=== PATIENT | male | born 1955 | race Caucasian/White ===

== ENCOUNTER 2023-07-14 07:34 | Emergency (ER) | payer MEDICARE, SELFPAY ==
[2023-07-14 07:36] VITALS: BP 177/101
--- NOTE | 2023-07-14 08:27 | ED.GENMED ---
History of Present Illness
General
Chief Complaint: Breathing Problem
Source: patient
Exam Limitations: none
Time Seen by Provider: 07/14/23 08:09
Travel History
Have you had any contact with someone who has COVID-19?: No
Do you have any symptoms of coronavirus? Fever > 100 degrees, chills, cough, shortness of breath, sore throat, loss of taste or smell, muscle aches, or headache?: No
History of Present Illness
History of Present Illness:
See MDM
Past History
Past History
ED Past Medical History: None
ED Past Surgical History: None
Social History
Tobacco: Smoker
Living: with family
Phy Exam
Physical Exam
Physical Exam:
See MDM
Scores
Heart Failure Risk
Heart Failure Risk Score: Not Applicable
Course
Orders/Labs/Results
Orders:
Orders
07/14/23 08:21
Ipratropium/Albuterol Sulfate [Duoneb] 3 ml INH R NOW STA
07/14/23 08:24
Electrocardiogram (*1) Urgent
Reason for Study: Shortness of Breath
EKG- Treatment ONCE
07/14/23 08:46
COVID-19 Antigen Urgent
Source: Nasal Swab
Complete Blood Count/With Diff Urgent
Comprehensive Metabolic Panel Urgent
Magnesium Urgent
NT-proBNP Urgent
TSH Reflex To Free T4 Urgent
Troponin I Urgent
07/14/23 09:39
Albuterol [ProAIR HFA INHALER] 1 puff INH R NOW STA
Dexamethasone Sod Phosphate [Decadron] 10 mg IV NOW STA
07/14/23 10:21
CR Chest - 2 Views Urgent
Comment:
Reason For Exam: SOB, cough
07/14/23 11:09
Dexamethasone Sod Phosphate [Decadron] 20 mg .ROUTE .ST-MED ONE
Abnormal Lab Results
07/14/23
08:46
RBC 4.14 L 10^6/uL
(4.70-6.10)
Hgb 12.8 L g/dL
(13.0-18.0)
Hct 36.9 L %
(39.0-52.0)
MPV 11.4 H fL
(7.4-10.4)
Absolute Monos (auto) 0.7 H 10^3/uL
(0.1-0.6)
Monocytes % 10.4 H %
(1.7-9.3)
Chloride 108 H mmol/L
(98-107)
BUN 24 H mg/dl
(9-20)
07/14/23 08:46
07/14/23 08:46
Vital Signs
Initial and Last Documented VS:
Initial Vital Signs
Temp Pulse Resp BP Pulse Ox
97.8 F 68 16 177/101 99
07/14/23 07:36 07/14/23 07:36 07/14/23 07:36 07/14/23 07:36 07/14/23 07:36
Last Documented Vital Signs
Temp Pulse Resp BP Pulse Ox
97.8 F 71 16 177/101 99
07/14/23 07:36 07/14/23 11:17 07/14/23 11:17 07/14/23 07:36 07/14/23 11:17
MDM/Problems Addressed
Differential Diagnosis Includes:
HPI and MDM Narrative:
67-year-old male presenting for shortness of breath and fatigue. Symptoms started yesterday. Symptoms appear to be worse when he tries to lay down to go to bed. It gets better when he goes outside and walks around. He is an active smoker. He
denies other past medical history. He denies chest pain. At rest, patient appears comfortable. He states he had a similar presentation many months ago and was diagnosed with COVID. He is unsure if this is COVID
On exam, lungs appear clear. He does have prolonged expiratory phase. Will give DuoNeb. Will obtain chest x-ray and basic blood work including screening EKG, troponin and BNP.
Physical exam
General: Well appearing and non-toxic
HEENT: protecting airway
Neck: appears supple
CV: No evidence of cyanosis. Regular rate and rhythm
Resp: No accessory muscle use. Lungs appear clear. Prolonged expiratory phase
Abd: Non-distended
Extremities: No deformities. No leg edema
Neuro: alert
Psych: Normal affect
Skin: Intact
Problems Addressed including Acute and Chronic Conditions affecting care:
1. Shortness of breath
Acuity: acute
Prognosis: stable
Details: Symptoms are unrelated with exertion. Doubt ACS. Given longstanding history of smoking, will start DuoNeb and reassess. Will obtain chest x-ray and cardiac work
Updates
Cardiac testing negative. Chest x-ray clear. On reassessment after DuoNeb, patient states he is feeling much better. Patient given dose of Decadron and will write for steroids and albuterol
Differential Diagnosis (but not limited to): COPD, COVID, pneumonia
Testing considered: D-dimer but he is neither tachycardic nor hypoxic and there is no clinical signs of DVT
Drug therapy (if applicable): OTC meds, please see d/c instruction regarding Rx drugs
Amount and/or Complexity of Data Reviewed
Clinical info obtained from: Patient
External data reviewed: N/A
Labs I independently reviewed (but not limited to): Troponin and BNP negative
Radiology: X-ray independently reviewed: COPD changes. Chest x-ray otherwise clear
Pulse Ox: not hypoxic
EKG independently reviewed: Sinus rhythm, normal axis, no STEMI, PACs
Registered Nurse Cardiovascular Icu: Sinus rhythm
Critical Care: N/A
Risk of Complication:
Social Determinants of health: Good social support
Discussed with other providers: N/A
Escalation of Care includes Admit/Obs: After being observed in the Emergency Department, pt stable for discharge.
Occasional wrong word or 'sound a like' substitutions may have occurred due to the inherent limitations of voice recognition software. Read the chart carefully and recognize, using context, where substitutions have occurred.
*Critical Care Note
Total Time (30-74mins, 75-104mins- exclusive of procedures): Not Applicable
ED Attending Note
-
Portions of this chart may have been created with voice recognition software.� Occasional wrong word or��sound alike� substitutions may have occurred due to the inherent limitations of voice recognition software.
Discharge Plan
Departure
Patient Disposition: Home (Routine Discharge)
Date of Disposition: 07/14/23
Time of Disposition: 11:38
Patient with high blood pressure during this ER visit?: Yes
Discharge Problem:
COPD with acute exacerbation
Instructions: Exacerbation of COPD (DC), BLOOD PRESSURE
Prescriptions:
New
albuterol sulfate [ProAir HFA] 90 mcg/actuation Hfa Aerosol Inhaler
1 puff INHALATION Q4HPRN PRN (Reason: shortness of breath) Qty: 8.5 0RF
prednisone 20 mg tablet
40 mg PO DAILY Qty: 10 0RF
No Action
ibuprofen [Advil] 200 MG tablet
200 mg PO PRN PRN (Reason: prn)
Referrals:
NONE,* [Family Provider] -
Activity Restrictions/Additional Instructions:
Please return for any worsening symptoms.
You may return at any time if you have further concerns.
Please follow up with your doctor at the first available appointment, preferably this week.
Thank you for choosing [facility].
Interventions
Interventions:
*Risk Screen - Suicide Last Done: 07/14/23 07:36
*General Assessment Last Done: 07/14/23 07:36
*Neglect/Abuse Screening Last Done: 07/14/23 07:36
ED- Fall Risk Assessment Last Done: 07/14/23 08:38
*ED COVID-19 Vaccine History Last Done: 07/14/23 08:38
ED- Cardiac Assessment Last Done: 07/14/23 08:38
ED- Pulmonary Assessment Last Done: 07/14/23 08:38
Discharge Date and Time
Print Language: BELARUSIAN
[2023-07-14 09:03] LABS: % Basophils 0.6 % (0-2); % Eosinophils 3.6 % (0-6); % Immature Granulocytes 0.3 % (0-0.5); % Lymphocytes 28.5 % (20.5-51.1); % Monocytes 10.4 % (1.7-9.3); % Neutrophils 56.6 % (42.2-75.2); Absolute Eosinophils 0.3 10^3/uL (0-0.7); Absolute Monocytes 0.7 10^3/uL (0.1-0.6); Hematocrit 36.9 % (39.0-52.0); Hemoglobin 12.8 g/dL (13.0-18.0); Mean Corp Hgb Conc. 34.7 g/dL (33.0-37.0); Mean Corpuscular Hgb 30.9 pg (27.0-31.0); Mean Corpuscular Volume 89.1 fL (80.0-94.0); Mean Platelet Volume 11.4 fL (7.4-10.4); Nucleated Red Blood Cells % 0 % (-); Platelet Count 187 10^3/uL (130-400); Red Blood Cell Count 4.14 10^6/uL (4.70-6.10); Red Cell Dist. Width 12.2 % (11.5-14.5)
[2023-07-14] MEDS: DUONEB 3 ML INH (09:07)
[2023-07-14 09:08] LABS: ALT (SGPT) 20 U/L (0-50); AST (SGOT) 26 U/L (17-59); Albumin 3.9 g/dl (3.5-5.0); Alkaline Phosphatase 77 U/L (38-126); Blood Urea Nitrogen 24 mg/dl (9-20); Calcium 9.6 mg/dl (8.4-10.2); Carbon Dioxide 24 mmol/L (22-30); Chloride 108 mmol/L (98-107); Glucose 97 mg/dl (70-99); Magnesium 1.9 mg/dl (1.6-2.3); Potassium 4.1 mmol/L (3.5-5.1); Sodium 135 mmol/L (135-145); Total Bilirubin 0.5 mg/dl (0.2-1.3); Total Protein 6.5 g/dl (6.3-8.2); eGFR > 60.00
[2023-07-14 09:10] LABS: COVID-19 Antigen Negative (Negative)
[2023-07-14 09:19] LABS: NT-proBNP 93.1 pg/ml; Troponin I < 0.012 ng/ml
[2023-07-14 09:39] LABS: TSH Reflex To Free T4 1.03 uIU/ml (0.47-4.68)
[2023-07-14] MEDS: ProAIR HFA INHALER 1 PUFF INH (11:14)
[2023-07-14] MEDS: DECADRON 10 MG IV (11:29)
== END 2023-07-14 11:45 | disposition home or self-care (01) ==
LOC: EMR 07:34
PROVIDERS: EMERGENCY PHYSICIAN Student in an Organized Health Care Education/Training Program
DX: J44.1 Chronic obstructive pulmonary disease with (acute) exacerbation (principal); F17.200 Nicotine dependence, unspecified, uncomplicated
CPT/HCPCS: 99284; 94640; 96374; 71046; 80053; 83735; 83880; 84443; 84484; 85025; 87811; 93005